=== PATIENT | female | born 1975 | race Caucasian/White ===

== ENCOUNTER 2016-12-10 08:40 | Day surgery (SDC) | payer OTHER ==
[~2016-12-10] VITALS: Ht 154.9 cm; Wt 88.7 kg
[2016-12-10 10:28] VITALS: Ht 154.9 cm; Wt 88.7 kg
[2016-12-10 10:47] VITALS: BP 105/73; PULSE 74; RESP 22
[2016-12-10] MEDS ORDERED: MIDAZOLAM 1 MG/ML 2 ML INJ ONE ×2 (11:19)
[2016-12-10] MEDS ORDERED: FENTAnyl 50 MCG/ML VIAL ONE (11:19)
[2016-12-10 11:46] VITALS: BP 103/62; RESP 20
--- NOTE | 2016-12-17 05:27 | GILP ---
DATE OF PROCEDURE: 12/10/2016 PREOPERATIVE DIAGNOSIS: Screening colonoscopy. POSTOPERATIVE DIAGNOSES: 1. Colonoscopy all the way to the cecum. 2. Internal hemorrhoids. 3. No colon neoplasm was identified. PROCEDURE PERFORMED: Colonoscopy. SURGEON: Rosette Christianson MD. INDICATION FOR PROCEDURE: Mrs. Crissy Pennington is a 41-year-old female patient who had positive BRCA gene which makes her susceptible for colon cancer. So the patient was scheduled for screening colonoscopy. The procedure and possible complications were well explained to the patient. She understood and consented to the procedure. DESCRIPTION OF PROCEDURE: Under influence of fentanyl and Versed the colonoscope was carefully introduced in the rectum and under direct vision it was advanced all the way to the cecum. Findings, the patient had internal hemorrhoids. No colon neoplasm was identified. She tolerated the procedure very well and there was no complication from the procedure. At the end of procedure she was awake with stable vital signs and she was discharged home in the care of her family. IMPRESSION: 1. Colonoscopy all the way to the cecum. 2. Internal hemorrhoids. 3. No colon neoplasm was identified. PLAN: Because of positive BRCA gene which makes her susceptible for care colon cancer next screening colonoscopy in 5 years. Dictated By: MD ANTONELLA Gomez/[email or web address] /Document#: [id number] CC: Rosette Christianson MD;*EndCC*
== END 2016-12-10 18:01 | disposition home or self-care (01) ==
LOC: GIL 08:40
PROVIDERS: ATTEND Internal Medicine Gastroenterology
DX: Z12.11 Encounter for screening for malignant neoplasm of colon (principal); K64.8 Other hemorrhoids
CPT/HCPCS: 45378; J2250; J3010